=== PATIENT | male | born 1935 | race Caucasian/White ===

== ENCOUNTER 2018-05-15 11:50 | Emergency (ER) | payer MEDICARE ==
[~2018-05-15] VITALS: Ht 180.3 cm; Wt 59.4 kg
[2018-05-15] MEDS ORDERED: Keflex500 MG PO (14:11)
[2018-05-15] MEDS ORDERED: Cipro750 MG PO (14:11)
== END 2018-05-15 14:50 | disposition home or self-care (01) ==
LOC: ER 11:50
DX: L03.032 Cellulitis of left toe (principal); L03.031 Cellulitis of right toe
CPT/HCPCS: 99283

== ENCOUNTER → 2018-12-26 | Outpatient (CLI) | payer MEDICARE ==
[~2018-12-26] MED LIST: Cipro750 MG PO; Keflex500 MG PO
== END | disposition home or self-care (01) ==
LOC: LAB SHORT 11:01 → PLD 11:01
DX: D48.5 Neoplasm of uncertain behavior of skin (principal)
CPT/HCPCS: 88305

== ENCOUNTER → 2019-10-10 | Outpatient (CLI) | payer MEDICARE | END | disposition home or self-care (01) | LOC: PLD 15:16 → LAB SHORT 15:16 | DX: C44.222 Squamous cell carcinoma of skin of right ear and external auricular canal (principal) | CPT/HCPCS: 88305 ==